=== PATIENT | female | born 1995 | race Caucasian/White ===

== ENCOUNTER 2017-05-25 16:54 | Emergency (ER) | payer OTHER ==
[~2017-05-25] VITALS: Ht 162.6 cm; Wt 114.9 kg
[2017-05-25 19:09] VITALS: BP 122/74
== END 2017-05-25 19:09 | disposition home or self-care (01) ==
LOC: ED 16:54
DX: J02.9 Acute pharyngitis, unspecified (principal); R03.0 Elevated blood-pressure reading, without diagnosis of hypertension
CPT/HCPCS: J0561; J1100

== ENCOUNTER 2017-07-22 18:30 | Emergency (ER) | payer OTHER ==
[~2017-07-22] VITALS: Ht 162.6 cm; Wt 117.6 kg
[2017-07-22 18:34] VITALS: Ht 162.6 cm; Wt 117.6 kg
[2017-07-22 21:17] LABS: UA SPECIFIC GRAVITY 1.025 (1.005-1.035); microscopic required? YES; urine erythrocyte 3+ (NEGATIVE)
[2017-07-22 21:46] LABS: BASOPHIL % 0.3 % (0-2); RED CELL DISTRIBUTION WIDTH 13.6 % (11.5-14.5)
[2017-07-22 21:49] LABS: PLATELET COUNT 428 x10^3mcL (130-400)
[2017-07-22 21:59] LABS: CALCIUM 8.9 mg/dL (8.5-10.1); CARBON DIOXIDE 26.7 mmol/L (21-32); CHLORIDE SERUM 102 mmol/L (98-107); CREATININE SERUM 0.7 mg/dL (0.6-1.0); GFR1 > 60 mL/min; GLUCOSE SERUM 81 mg/dL (74-106); POTASSIUM SERUM 3.6 mmol/L (3.5-5.1); SODIUM SERUM 139 mmol/L (136-145)
[2017-07-22 23:16] VITALS: BP 113/72
== END 2017-07-22 23:16 | disposition home or self-care (01) ==
LOC: ED 18:30
PROVIDERS: Emergency Medicine
DX: O20.0 Threatened abortion (principal); R82.71 Bacteriuria; Z3A.08 8 weeks gestation of pregnancy
CPT/HCPCS: 36415

== ENCOUNTER 2017-07-25 07:24 | Emergency (ER) | payer OTHER ==
[2017-07-25 07:56] LABS: BASOPHIL % 0.6 % (0-2); PLATELET COUNT 395 x10^3mcL (130-400); RED CELL DISTRIBUTION WIDTH 13.7 % (11.5-14.5)
[2017-07-25 09:24] VITALS: BP 128/81
== END 2017-07-25 09:25 | disposition home or self-care (01) ==
LOC: ED 07:24
PROVIDERS: Emergency Medicine
DX: O03.4 Incomplete spontaneous abortion without complication (principal); Z3A.08 8 weeks gestation of pregnancy
CPT/HCPCS: 36415

== ENCOUNTER 2018-10-29 15:33 | Emergency (ER) | payer OTHER ==
[~2018-10-29] VITALS: Ht 162.6 cm; Wt 120.2 kg
[2018-10-29 15:48] VITALS: Ht 162.6 cm; Wt 120.2 kg
[2018-10-29 17:14] VITALS: BP 136/85
== END 2018-10-29 17:14 | disposition home or self-care (01) ==
LOC: ED 15:33
DX: O21.9 Vomiting of pregnancy, unspecified (principal); O24.419 Gestational diabetes mellitus in pregnancy, unspecified control; Z3A.13 13 weeks gestation of pregnancy